=== PATIENT | male | born 1965 | race Caucasian/White ===

== ENCOUNTER 2018-01-04 20:22 | Emergency (ER) | payer BC ==
[2018-01-04 20:29] VITALS: BP 102/82
--- NOTE | 2018-01-04 20:29 | EDPHY ---
HPI/HX/ROS/PE/MDM Narrative: CHIEF COMPLAINT: Right face swelling after eating HPI: The patient is a 52 y/o male complaining of a swollen right face after eating onion soup at 20:00, 30 minutes ago. After the first bite of soup he noticed a sudden increase of the right-sided salivary secretions. The swelling occurred within 10-15 minutes of eating the soup. He initially noticed pressure near his right ear right lateral jaw. When he touched the side of his face it felt swollen. His symptoms are significantly improved on arrival to the ED. Denies history of similar symptoms or right-sided dental fillings. He did fly into [place] from [place] yesterday, but had no ear or mouth pain on the flight. Denies headache, numbness, paresthesias, chest pain, shortness of breath, abdominal pain, urinary or bowel complaints, fever. No chest pain or SOB. No cardiac disease. No neck pain. No recent trauma. REVIEW OF SYSTEMS: Aside from elements discussed in the HPI, a comprehensive 10-point review of systems was reviewed and is negative. PMH: Denies SOCIAL HISTORY: Visiting [place] from [place], friend at bedside, employed PHYSICAL EXAM: General: Patient is alert, in no acute distress. ENT: Eyes are normal to inspection. Mild swelling in the area of the right parotid gland, no fluctuance, no stones seen at [place] Duct. Nose and throat inspection normal. Neck: Normal inspection. Full range of motion. Respiratory: No respiratory distress. Breath sounds normal bilaterally. Cardiovascular: Regular rate and rhythm. Strong peripheral pulses. Normal cap refill. Abdomen: The abdomen is nontender to palpation. There are no peritoneal signs. There are normal bowel sounds. Back: Normal to inspection. No tenderness to palpation. Skin: Normal color. No rash. Warm and dry. Extremities: Normal appearance. Full range of motion. Neuro: Oriented x3. Normal motor function. Normal sensory function. ED Course: 2030: I assessed patient and discussed follow up with a dentist regarding the mild right tooth decay and sialadenitis. At this time imaging and laboratory studies are not indicated. He is declining pain medications at this time. Return precautions provided patient is comfortable with this plan. MDM: This patient presents with signs and symptoms of sialoadenitis. This seems to be resolving spontaneously and I see no stone to remove. No evidence of lypmphadenopathy or other ENT process. Patient does have extensive dental caries so this could represent dentalgia. General Time Seen by Provider: 01/04/18 20:27 Initial Vital Signs: Initial Vital Signs Temperature (C) 36.7 C 01/04/18 20:22 Heart Rate 80 01/04/18 20:22 Respiratory Rate 16 01/04/18 20:22 Blood Pressure 102/82 H 01/04/18 20:22 O2 Sat (%) 95 01/04/18 20:22 O2 Delivery Mode Room Air Allergies/Adverse Reactions: No Known Allergies Allergy (Verified 01/04/18 20:26) Home Medications: Medication Instructions Recorded NK [No Known Home Meds] 01/04/18 Departure - Departure Disposition: Home, Routine, Self-Care Clinical Impression: Sialoadenitis Condition: Good Instructions: Sialoadenitis (ED) Additional Instructions: Apply ice to the sore or swollen areas for a short period of time. Take ibuprofen for swelling and pain. Try eating sour candy. Follow-up with your dentist within one week. Return to the ED for return of symptoms in a day or two, fever, difficulty swallowing, increase in swelling or other concerns. Referrals: [facility],. [Clinic] - As per Instructions Dental Aid [Outside] - As per Instructions Report Scribed for: Terrell Mccann Report Scribed by: Merline Wallis Date of Report: 01/04/18 Time of Report: 20:29 Physician Review and Approval Statement: Portions of this note were transcribed by an ED scribe. I personally performed the history, physical exam, and medical decision making; and confirm the accuracy of the information in the transcribed note.
== END 2018-01-04 21:02 | disposition home or self-care (01) ==
DX: K11.20 Sialoadenitis, unspecified (principal)